=== PATIENT | female | born 1935 | race Caucasian/White ===

== ENCOUNTER 2017-03-18 19:07 | Emergency (ER) | payer OTHER ==
[~2017-03-18] VITALS: Ht 154.9 cm; Wt 50.8 kg
[~2017-03-18 19:07] MED LIST: ESCITALOPRAM OX10 MG PO; K-DUR10 MEQ PO; LISINOPRIL-HCT1 EAC1 PO; LISINOPRIL20 MG PO; LOVASTATIN40 MG PO; NAMENDA 10 MG T10 MG PO; NASONEX17 GM NASAL; NORVASC10 MG PO; NORVASC5 MG PO
[2017-03-18 19:36] LABS: ABSOLUTE NEUTROPHILS 3.7 thou/uL (1.4-8.2); BASOPHILS 0.5 % (0.0-2.0); EOSINOPHILS 1.7 % (0.0-3.0); HEMATOCRIT 37.9 % (37.0-47.0); HEMOGLOBIN 13.1 gm/dL (12.0-15.0); LYMPHOCYTES 31.7 % (24.0-44.0); MCHC 34.6 g/dL (28.0-37.0); MCV 92.4 fL (80.0-100.0); PLATELET COUNT 209 thou/uL (150-400); POLYS 60.1 % (36.0-66.0); RBC 4.11 mil/uL (4.20-5.00); RDW 13.8 % (10.5-14.5); WBC 6.1 thou/uL (4.0-11.0)
[2017-03-18 19:37] LABS: MANUAL DIFF NO
[2017-03-18 19:44] LABS: CALCIUM 9.9 mg/dL (8.5-10.1); CREATININE 0.8 mg/dL (0.6-1.0); POTASSIUM 3.6 mmol/L (3.5-5.1)
[2017-03-18 20:08] LABS: URINE BILIRUBIN NEGATIVE (Negative); URINE BLOOD 1+ (Negative); URINE COLOR YELLOW; URINE GLUCOSE-RANDOM* NEGATIVE (Negative); URINE KETONES NEGATIVE (Negative); URINE LEUKOCYTES-REFLEX 1+ (Negative); URINE PROTEIN (DIPSTICK) NEGATIVE (Negative); URINE SPECIFIC GRAVITY 1.015 (1.003-1.035); URINE UROBILINOGEN 0.2 E.U./dl (0.2-1.0)
[2017-03-18 20:14] LABS: CASTS None Seen /LPF (None Seen); SQUAMOUS 0-3 Few /LPF (0-3); URINE RBC 0-2 Rare /HPF (0-2); URINE WBC-REFLEX 0-5 Rare /HPF (0-5)
[2017-03-18 20:15] LABS: CRYSTALS None Seen /LPF (None Seen)
[2017-03-18] MEDS ORDERED: KEFLEX500 MG PO (21:34)
[2017-03-18 21:51] VITALS: BP 120/68
== END 2017-03-18 21:52 | disposition home or self-care (01) ==
LOC: ER 19:07
PROVIDERS: Emergency Medicine
DX: N39.0 Urinary tract infection, site not specified (principal); F10.129 Alcohol abuse with intoxication, unspecified; I10 Essential (primary) hypertension; Z90.710 Acquired absence of both cervix and uterus; Y90.6 Blood alcohol level of 120-199 mg/100 ml